=== PATIENT | male | born 1965 | race Caucasian/White ===

== ENCOUNTER → 2017-06-19 | Outpatient (REF) ==
--- NOTE | 2017-06-19 10:44 | RADIOLOGY IMAGING REPORT ---
FACILITY: [facility] [place] PATIENT NAME: Speedy Harvey : 1965 MR: [id number] V: [id number] EXAM DATE: ORDERING PHYSICIAN: JAYDE WYNNE TECHNOLOGIST: Location: [facility] Patient: Speedy Harvey : 1965 Visit/Account:[id number] Date of Sevice: 06/19/2017 Exam type: CHEST SINGLE AP History: Employment physical Comparison: July 05, 2015. Findings: The lungs are free of acute effusions, infiltrates or edema. Cardiac silhouette is normal in size. Visualized bones are unremarkable other than tracts in the distal left clavicle likely from previous hardware. IMPRESSION: 1. No acute cardiopulmonary process is seen Report Dictated By: Heather Bustillo MD at 06/19/2017 10:38 AM Report E-Signed By: Heather Bustillo MD at 06/19/2017 10:40 AM WSN:[email or web address]
== END ==
LOC: RAD 10:08
PROVIDERS: ATTEND Physician Assistant Medical
DX: Z02.89 Encounter for other administrative examinations (principal)
CPT/HCPCS: 71045

== ENCOUNTER → 2018-06-24 | Outpatient (REF) ==
--- NOTE | 2018-06-24 10:02 | RADIOLOGY IMAGING REPORT ---
FACILITY: [facility] [place] PATIENT NAME: Speedy Harvey : 1965 MR: [id number] V: [id number] EXAM DATE: ORDERING PHYSICIAN: YOCASTA AUGUSTINE TECHNOLOGIST: Location: [facility] [place] Patient: Speedy Harvey : 1965 Visit/Account:[id number] Date of Sevice: 06/24/2018 CHEST SINGLE AP History: Work physical FINDINGS: Comparison studies: Chest x-ray 08/19/2017 Tubes and Lines: None. Lungs and pleura: Well aerated. No evidence of focal consolidation or pleural effusions. Mediastinum: normal. Cardiac silhouette: normal . Osseous structures: Evidence of remote hardware removal from distal left clavicle. Otherwise unrem arkable. IMPRESSION: Negative chest Report Dictated By: Jesus Wolff MD at 06/24/2018 9:56 AM Report E-Signed By: Jesus Wolff MD at 06/24/2018 9:58 AM WSN:[email or web address]
== END ==
LOC: RAD 09:25
PROVIDERS: ATTEND Physician Assistant
DX: Z02.89 Encounter for other administrative examinations (principal)
CPT/HCPCS: 71045

== ENCOUNTER → 2018-11-28 | Outpatient (CLI) | payer OTHER ==
[~2018-11-28] MED LIST: FAMO20TA28 PO; FLUT16SP19 NS
[2018-11-28 15:47] LABS: PLATELET COUNT, AUTOMATED 165 K/uL (150-450)
== END ==
LOC: LAB 15:30
PROVIDERS: ATTEND Surgery
DX: G47.30 Sleep apnea, unspecified (principal)
CPT/HCPCS: 36415; 85025